=== PATIENT | male | born 1985 | race African-American/Black ===

== ENCOUNTER 2020-02-18 08:54 | Emergency (ER) | payer BC ==
[~2020-02-18] VITALS: Ht 177.8 cm; Wt 72.6 kg
[2020-02-18 09:19] VITALS: BP 112/42
[2020-02-18] MEDS ORDERED: Ipratropium 0.02% Inh Soln 2.5ml UD HHN ONE (09:30)
[2020-02-18 09:38] LABS: BASOPHILS % (AUTO) 1.8 % (0.0-2.0); EOSINOPHILS % (AUTO) 1.9 % (0.0-3.0); HEMATOCRIT 45.8 % (42.0-52.0); HEMOGLOBIN 15.6 G/DL (14.2-18.0); LYMPHOCYTES % (AUTO) 29.3 % (20.0-45.0); MEAN CORPUSCULAR VOLUME 94 FL (80-99); MONOCYTES % (AUTO) 10.7 % (1.0-10.0); NEUTROPHILS % (AUTO) 56.3 % (45.0-75.0); PLATELET COUNT 182 K/UL (150-450); RED BLOOD COUNT 4.87 M/UL (4.70-6.10); RED CELL DISTRIBUTION WIDTH 10.8 % (11.6-14.8); WHITE BLOOD COUNT 4.7 K/UL (4.8-10.8)
[2020-02-18 09:50] LABS: INR 1.1 (0.9-1.1)
[2020-02-18 10:23] LABS: ANION GAP 5 mmol/L (5-15); BLOOD UREA NITROGEN 15 mg/dL (7-18); CALCIUM 9.2 MG/DL (8.5-10.1); CARBON DIOXIDE 32 MMOL/L (21-32); CHLORIDE 103 MMOL/L (98-107); CREATININE 1.5 MG/DL (0.55-1.30); POTASSIUM 3.9 MMOL/L (3.5-5.1); SODIUM 140 MMOL/L (136-145)
[2020-02-18 10:36] LABS: ALANINE AMINOTRANSFERASE 28 U/L (12-78); ALBUMIN 4.1 G/DL (3.4-5.0); ALKALINE PHOSPHATASE 65 U/L (46-116); ASPARTATE AMINO TRANSFERASE 24 U/L (15-37); CREATINE KINASE 426 U/L (26-308); LACTATE DEHYDROGENASE 152 U/L (81-234)
[2020-02-18 11:15] VITALS: BP 122/65
[2020-02-18] MEDS: Albuterol ud Inhalation HHN SCH ×2 (11:21→11:22)
--- NOTE | 2020-02-18 12:39 | Diagnostic Imaging Report ---
Procedure: XRAY Chest 1v Reason for study: Chest pain. Comparison films: None. FINDINGS: A single one view chest is obtained. Vascularity is normal. The lung mcbride are clear bilaterally. Cardiac and mediastinal silhouette are within normal limits. CP angles are sharp. The bony thorax appear unremarkable. IMPRESSION: NO ACUTE CARDIOPULMONARY DISEASE.
--- NOTE | 2020-02-18 13:40 | Emergency Room Report ---
History of Present Illness General Chief Complaint: Chest Pain Source: Patient Present Illness HPI The patient presents with several months of fatigue, dyspnea on exertion without chest pain or fever. He was evaluated several months ago and prescribed albuterol and a steroid inhaler. He states these have not been helpful recently. He occasionally hears himself wheezing. He states he has a history of asthma. He denies fevers or chills. He tested negative for COVID- 19 several months ago. He denies stress or anxiety at this time. He denies chest pain per se but states that he has discomfort that 6/10 in his chest with the dyspnea. There is no calf pain, edema or swelling, hemoptysis or productive cough. Initially when he is is asked about history of asthma he denies this but later states he does have a history. Risk factors for cardiac disease: No smoking, family history of cardiac illness , hypertension, smoking or diabetes. No sore throat, chest pain, palpitations, nausea, vomiting, diarrhea, dysuria, abdominal pain, shortness of breath, joint pain, depression, anxiety, visual changes, dizziness, headache. He has a rash on his chest which is chronic. Apparently his doctor has ordered COVID-19 antibody test. Allergies: Coded Allergies: No Known Allergies (Unverified , 02/18/20) COVID-19 Screening Contact w/high risk pt: No Experienced COVID-19 symptoms?: Yes COVID-19 Testing performed OBSTETRICS GYN: Yes COVID-19 Screening: Negative COVID-19 COVID-19 Testing Source: months ago. Patient History Past Medical History: see triage record Social History: Denies: smoking, alcohol use, drug use Social History Narrative Unemployed, , in Reviewed Nursing Documentation: PMH: Agreed; PSxH: Agreed Nursing Documentation-PMH Past Medical History: No History, Except For Hx Asthma: Yes Review of Systems All Other Systems: negative except mentioned in HPI Physical Exam Vital Signs Date Time Temp Pulse Resp B/P (MAP) Pulse Ox O2 Delivery O2 Flow Rate FiO2 02/18/20 09:09 97.9 17 112/42 (65) 98 Room Air 02/18/20 09:19 66 Sp02 EP Interpretation: reviewed, normal General Appearance: well appearing, no apparent distress, GCS 15, non-toxic Head: normocephalic Eyes: bilateral eye normal inspection, bilateral eye PERRL, bilateral eye EOMI ENT: normal pharynx, moist mucus membranes Neck: supple Respiratory: chest non-tender, lungs clear, normal breath sounds Cardiovascular #1: regular rate, rhythm, no edema Cardiovascular #2: 2+ radial (R) Gastrointestinal: normal inspection, normal bowel sounds, non tender, no mass, non-distended Musculoskeletal: back normal, normal range of motion, no calf tenderness, gait/ station normal Neurologic: alert, oriented x3, grossly normal Psychiatric: mood/affect normal Skin: warm/dry, other Medical Decision Making Diagnostic Impression: Primary Impression: Bronchospasm ER Course Patient presents with dyspnea on exertion and some chest pain that is worsening over several months with a history of asthma. Differential includes COVID-19, bronchospasm, bronchitis, acute myocardial infarction amongst others. Based on vital signs and history pulmonary embolus less likely. Evaluation with EKG, chest x-ray and labs. Albuterol and Atrovent ordered. EKG without injury. Chest x-ray clear. COVID-19 test required for nebulized treatment. COVID-19 test negative. Patient improved after breathing treatment with decreased dyspnea as well as decreased pain. Discussed results with patient. Discussed treatment plan. Prednisone administered. Patient stable for outpatient observation and treatment. Laboratory Tests Test 02/18/20 09:20 White Blood Count 4.7 K/UL (4.8-10.8) L Red Blood Count 4.87 M/UL (4.70-6.10) Hemoglobin 15.6 G/DL (14.2-18.0) Hematocrit 45.8 % (42.0-52.0) Mean Corpuscular Volume 94 FL (80-99) Mean Corpuscular Hemoglobin 32.1 PG (27.0-31.0) H Mean Corpuscular Hemoglobin Concent 34.1 G/DL (32.0-36.0) Red Cell Distribution Width 10.8 % (11.6-14.8) L Platelet Count 182 K/UL (150-450) Mean Platelet Volume 8.2 FL (6.5-10.1) Neutrophils (%) (Auto) 56.3 % (45.0-75.0) Lymphocytes (%) (Auto) 29.3 % (20.0-45.0) Monocytes (%) (Auto) 10.7 % (1.0-10.0) H Eosinophils (%) (Auto) 1.9 % (0.0-3.0) Basophils (%) (Auto) 1.8 % (0.0-2.0) Prothrombin Time 11.7 SEC (9.30-11.50) H Prothrombin Time INR 1.1 (0.9-1.1) Activated Partial Thromboplast Time 27 SEC (23-33) Sodium Level 140 MMOL/L (136-145) Potassium Level 3.9 MMOL/L (3.5-5.1) Chloride Level 103 MMOL/L (98-107) Carbon Dioxide Level 32 MMOL/L (21-32) Anion Gap 5 mmol/L (5-15) Blood Urea Nitrogen 15 mg/dL (7-18) Creatinine 1.5 MG/DL (0.55-1.30) H Estimated Glomerular Filtration Rate > 60 mL/min (>60) Glucose Level 105 MG/DL (74-106) Calcium Level 9.2 MG/DL (8.5-10.1) Total Bilirubin 1.0 MG/DL (0.2-1.0) Aspartate Amino Transferase (AST) 24 U/L (15-37) Alanine Aminotransferase (ALT) 28 U/L (12-78) Alkaline Phosphatase 65 U/L (46-116) Lactate Dehydrogenase 152 U/L (81-234) Total Creatine Kinase 426 U/L (26-308) H Troponin I 0.000 ng/mL (0.000-0.056) C-Reactive Protein, Quantitative < 0.4 mg/dL (0.00-0.90) Pro-B-Type Natriuretic Peptide 11 pg/mL (0-125) Total Protein 7.0 G/DL (6.4-8.2) Albumin 4.1 G/DL (3.4-5.0) Globulin 2.9 g/dL Microbiology Date/Time Source Procedure Growth Status 02/18/20 10:30 Nasopharynx SARS-CoV-2 RdRp Gene Assay - Final Complete EKG Diagnostic Results Rate: normal Rhythm: NSR ST Segments: no acute changes Rhythm Strip Diag. Results EP Interpretation: yes Rhythm: NSR, no PVC's, no ectopy Chest X-Ray Diagnostic Results Chest X-Ray Diagnostic Results : Chest X-Ray Ordered: Yes # of Views/Limited/Complete: 1 View Indication: Other EP Interpretation: Yes Interpretation: no consolidation, no effusion, no pneumothorax Impression: No acute disease Electronically Signed by: Electronically signed by Choco Bansal MD Last Vital Signs Date Time Temp Pulse Resp B/P (MAP) Pulse Ox O2 Delivery O2 Flow Rate FiO2 02/18/20 13:51 98.2 86 16 118/76 97 Room Air Status: improved Disposition: HOME, SELF-CARE Condition: Improved Scripts Prednisone* (PREDNISONE*) 20 Mg Tablet 40 MG ORAL DAILY, #10 TAB Prov: Choco Bansal MD 02/18/20 Ipratropium/Albuterol Sulfate (Combivent Respimat Inhal [place]) 4 Gm Mist.inhal 2 PUFFS IH Q6HR, #1 GM 1 Refill Prov: Choco Bansal MD 02/18/20 Referrals: [facility],REFERRING (PCP) Choco Bansal MD Feb 18, 2020 13:40
[2020-02-18] MEDS ORDERED: COMBIVENT RESPIM4 GM IH (13:42)
[2020-02-18] MEDS ORDERED: PREDNISONE20 MG ORAL (13:42)
[2020-02-18 13:51] VITALS: BP 118/76
== END 2020-02-18 13:51 | disposition home or self-care (01) ==
LOC: EMR 09:15
DX: J98.01 Acute bronchospasm (principal); R21 Rash and other nonspecific skin eruption
CPT/HCPCS: 36415; 71045; 80053; 82550; 83615; 83880; 84484; 85025; 85610; 85730; 86140; 93005; 94640; 99284; J7512; U0002